=== PATIENT | female | born 1970 | race Hispanic/Latino ===

== ENCOUNTER 2018-03-06 10:13 | Outpatient (CLI) | payer MEDICAID ==
--- NOTE | 2018-03-11 14:14 | XRay Report ---
FINAL REPORT EXAM: XR SPINE LUMBOSACRAL 2-3V HISTORY: INJURY TECHNIQUE: Lumbar spine three views PRIORS: None. FINDINGS: Vertebral bodies demonstrate normal height and alignment. The disc spaces are within normal limits. There is facet joint hypertrophic arthropathy at L3-L4, L4-5 and L5-S1. There is no evidence of spondylolisthesis. Transverse and spinous processes are intact SI joints are unremarkable. IMPRESSION: Negative lumbar spine series
--- NOTE | 2018-03-11 14:14 | XRay Report ---
FINAL REPORT EXAM: XR SPINE SACRUM/COCCYX 2+V HISTORY: INJURY TECHNIQUE: Three-view sacrum and coccyx PRIORS: None. FINDINGS: Coccyx maintains normal contour. There is no evidence for sacral or coccygeal fracture. Sacroiliac joints are unremarkable. Pubic symphysis is intact. IMPRESSION: Negative sacrum and coccyx
== END 2018-03-06 10:14 | disposition home or self-care (01) ==
LOC: XRAY 10:13
PROVIDERS: ATTEND Psychiatry & Neurology Neurology
DX: S39.82XD Other specified injuries of lower back, subsequent encounter (principal); M12.88 Other specific arthropathies, not elsewhere classified, other specified site; X58.XXXD Exposure to other specified factors, subsequent encounter; F17.210 Nicotine dependence, cigarettes, uncomplicated
CPT/HCPCS: 72100; 72220